=== PATIENT | male | born 1990 | race Caucasian/White ===

== ENCOUNTER 2016-08-26 08:45 | Outpatient (RCR) | payer OTHER ==
[~2016-08-26 08:45] MED LIST: no home medications
== END 2016-08-27 | disposition home or self-care (01) ==
LOC: M OUTALCOH 08:45
PROVIDERS: ATTEND Psychiatry & Neurology Psychiatry
DX: F10.20 Alcohol dependence, uncomplicated (principal); F17.200 Nicotine dependence, unspecified, uncomplicated

== ENCOUNTER 2016-09-23 11:00 | Outpatient (RCR) | payer OTHER | END 2016-09-24 | LOC: M OUTALCOH 11:00 | PROVIDERS: ATTEND Psychiatry & Neurology Psychiatry | DX: F10.20 Alcohol dependence, uncomplicated (principal); F12.20 Cannabis dependence, uncomplicated; F17.200 Nicotine dependence, unspecified, uncomplicated ==

== ENCOUNTER → 2016-12-18 | Outpatient (CLI) | payer MEDICAID | LOC: M OUTALCOH 07:37 | PROVIDERS: ATTEND Psychiatry & Neurology Psychiatry | DX: Z13.9 Encounter for screening, unspecified (principal); F10.20 Alcohol dependence, uncomplicated; F12.20 Cannabis dependence, uncomplicated ==

== ENCOUNTER 2017-01-23 14:00 | Outpatient (RCR) | payer MEDICAID | END 2017-01-24 | LOC: M OUTALCOH 14:00 | PROVIDERS: ATTEND Psychiatry & Neurology Psychiatry | DX: F10.20 Alcohol dependence, uncomplicated (principal); F17.200 Nicotine dependence, unspecified, uncomplicated; F12.20 Cannabis dependence, uncomplicated ==

== ENCOUNTER → 2017-02-24 | Outpatient (RCR) | payer MEDICAID | LOC: M OUTALCOH 01-30 15:52 | PROVIDERS: ATTEND Psychiatry & Neurology Psychiatry | DX: F10.20 Alcohol dependence, uncomplicated (principal); F17.200 Nicotine dependence, unspecified, uncomplicated; F12.20 Cannabis dependence, uncomplicated ==

== ENCOUNTER 2017-03-26 15:00 | Outpatient (RCR) | payer MEDICAID | END 2017-03-27 | LOC: M OUTALCOH 15:00 | PROVIDERS: ATTEND Psychiatry & Neurology Psychiatry | DX: F10.20 Alcohol dependence, uncomplicated (principal); F17.200 Nicotine dependence, unspecified, uncomplicated; F12.20 Cannabis dependence, uncomplicated ==

== ENCOUNTER 2017-04-23 15:00 | Outpatient (RCR) | payer MEDICAID | END 2017-04-26 | LOC: M OUTALCOH 15:00 | PROVIDERS: ATTEND Psychiatry & Neurology Psychiatry | DX: F10.20 Alcohol dependence, uncomplicated (principal); F17.200 Nicotine dependence, unspecified, uncomplicated; F12.20 Cannabis dependence, uncomplicated ==

== ENCOUNTER 2017-06-23 16:00 | Outpatient (RCR) | payer MEDICAID | END 2017-06-26 | LOC: M OUTALCOH 16:00 | PROVIDERS: ATTEND Psychiatry & Neurology Psychiatry | DX: F10.20 Alcohol dependence, uncomplicated (principal); F17.200 Nicotine dependence, unspecified, uncomplicated; F12.20 Cannabis dependence, uncomplicated ==

== ENCOUNTER 2017-06-30 14:55 | Outpatient (RCR) | payer MEDICAID | END 2017-07-27 | LOC: M OUTALCOH 14:55 | DX: F10.20 Alcohol dependence, uncomplicated (principal); F17.200 Nicotine dependence, unspecified, uncomplicated; F12.20 Cannabis dependence, uncomplicated ==

== ENCOUNTER 2017-08-13 15:03 | Outpatient (RCR) | payer MEDICAID | END 2017-08-27 | LOC: M OUTALCOH 08-14 16:00 | DX: F10.20 Alcohol dependence, uncomplicated (principal); F17.200 Nicotine dependence, unspecified, uncomplicated; F12.20 Cannabis dependence, uncomplicated ==

== ENCOUNTER 2017-09-01 10:15 | Outpatient (RCR) | payer MEDICAID | END 2017-09-24 | LOC: M OUTALCOH 09-08 16:00 | DX: F10.20 Alcohol dependence, uncomplicated (principal); F17.200 Nicotine dependence, unspecified, uncomplicated; F12.20 Cannabis dependence, uncomplicated ==

== ENCOUNTER 2017-09-26 14:58 | Outpatient (RCR) | payer MEDICAID | END 2017-10-25 | LOC: M OUTALCOH 09-29 08:45 | DX: F10.20 Alcohol dependence, uncomplicated (principal); F17.200 Nicotine dependence, unspecified, uncomplicated; F12.20 Cannabis dependence, uncomplicated ==

== ENCOUNTER 2017-11-11 15:03 | Outpatient (RCR) | payer MEDICAID | END 2017-11-24 | LOC: M OUTALCOH 15:03 | DX: F10.20 Alcohol dependence, uncomplicated (principal); F17.200 Nicotine dependence, unspecified, uncomplicated; F12.20 Cannabis dependence, uncomplicated ==

== ENCOUNTER 2017-11-25 16:16 | Outpatient (RCR) | payer MEDICAID | END 2017-12-25 | LOC: M OUTALCOH 11-26 16:00 | DX: F10.20 Alcohol dependence, uncomplicated (principal); F17.200 Nicotine dependence, unspecified, uncomplicated; F12.20 Cannabis dependence, uncomplicated ==

== ENCOUNTER 2018-01-07 10:31 | Outpatient (RCR) | payer MEDICAID | END 2018-01-24 | LOC: M OUTALCOH 10:31 | DX: F10.20 Alcohol dependence, uncomplicated (principal); F17.200 Nicotine dependence, unspecified, uncomplicated; F12.20 Cannabis dependence, uncomplicated ==

== ENCOUNTER → 2018-04-17 | Outpatient (REF) | payer MEDICAID ==
[2018-04-20 12:58] LABS: HEPATITIS A ANTIBODY IGM NEGATIVE (NEGATIVE); HEPATITIS B CORE ANTIBODY IGM NEGATIVE (NEGATIVE); HEPATITIS B SURFACE ANTIGEN NEGATIVE (NEGATIVE)
[2018-04-20 12:58] LABS: HEPATITIS C VIRUS ABY INDEX 0.1 INDEX (<0.8)
== END ==
LOC: M LAB REF 17:35
DX: Z02.89 Encounter for other administrative examinations (principal)

== ENCOUNTER 2018-05-22 09:50 | Emergency (ER) | payer OTHER ==
[2018-05-22] MEDS: MORPHINE 2 MG/ML 1ML SYRINGE (J2270) IV ×2 (10:40→12:02)
[2018-05-22] MEDS: ONDANSETRON 4MG/2ML VIAL (J2405) IV (10:40)
== END 2018-05-22 12:21 | disposition home or self-care (01) ==
LOC: M ED 09:50
DX: S42.022A Displaced fracture of shaft of left clavicle, initial encounter for closed fracture (principal); V00.131A Fall from skateboard, initial encounter; Y92.830 Public park as the place of occurrence of the external cause; Z87.81 Personal history of (healed) traumatic fracture; K21.9 Gastro-esophageal reflux disease without esophagitis; F17.200 Nicotine dependence, unspecified, uncomplicated; Z79.899 Other long term (current) drug therapy
CPT/HCPCS: J2405

== ENCOUNTER 2019-02-09 14:26 | Emergency (ER) | payer OTHER ==
[~2019-02-09] VITALS: Ht 188 cm; Wt 84.6 kg
[~2019-02-09 14:26] MED LIST changes: +CLON-412; +DEXT10CA5; +PERC5TAB12 PO
[2019-02-09 14:27] VITALS: BP 140/83
[2019-02-09] MEDS ORDERED: BACT800T5 PO (15:58)
[2019-02-09] MEDS ORDERED: NAPR-837 PO (15:58)
[2019-02-09] MEDS ORDERED: BACTRIM 160MG/800MG DS TAB PO ONE (16:00)
[2019-02-09] MEDS ORDERED: NAPROXEN 250 MG TAB PO ONE (16:00)
[2019-02-09] MEDS ORDERED: DERMABOND TOPICAL SKIN ADHESIVE TOP ONE (16:00)
== END 2019-02-09 16:08 | disposition home or self-care (01) ==
LOC: M ED 14:26
DX: S61.012A Laceration without foreign body of left thumb without damage to nail, initial encounter (principal); W26.0XXA Contact with knife, initial encounter; Y92.098 Other place in other non-institutional residence as the place of occurrence of the external cause; K21.9 Gastro-esophageal reflux disease without esophagitis; R06.83 Snoring; M79.9 Soft tissue disorder, unspecified; Z79.899 Other long term (current) drug therapy; F17.200 Nicotine dependence, unspecified, uncomplicated

== ENCOUNTER 2023-05-19 13:09 | Emergency (ER) | payer OTHER ==
[~2023-05-19] VITALS: Ht 190.5 cm; Wt 87.9 kg
[~2023-05-19 13:09] MED LIST changes: +BACT800T5 PO; +NAPR-837 PO
[2023-05-19 13:10] VITALS: BP 159/94; TEMP 98.6; O2SAT 100
== END 2023-05-19 14:45 | disposition left against medical advice (07) ==
LOC: M ED 13:09
DX: Z53.21 Procedure and treatment not carried out due to patient leaving prior to being seen by health care provider (principal)

== ENCOUNTER 2025-03-29 18:10 | Emergency (ER) | payer OTHER ==
[~2025-03-29] VITALS: Ht 188 cm; Wt 82.9 kg
[2025-03-29 18:43] LABS: PLATELET COUNT, AUTOMATED 292 10^3/uL (150-450)
[2025-03-29 19:15] LABS: SALICYLATE LEVEL < 3.0 MG/DL (<30)
[2025-03-29 19:19] LABS: ALT/SGPT 128 U/L (7.0-40); AST/SGOT 136 U/L (<34); CALCIUM LEVEL 8.7 MG/DL (8.5-10.1); CARBON DIOXIDE LEVEL 20 MMOL/L (20-31); CHLORIDE LEVEL 101 MMOL/L (98-107); CREATININE FOR GFR 0.78 MG/DL (0.70-1.30); GLOMERULAR FILTRATION RATE > 90.0 (>60); POTASSIUM SERUM 4.2 MMOL/L (3.5-5.1); SODIUM LEVEL 141 MMOL/L (136-145)
[2025-03-29] MEDS ORDERED: HALOPERIDOL LACTATE 5 MG/ML VIAL As Ordered ONE (19:25)
[2025-03-29] MEDS: HALOPERIDOL LACTATE 5 MG/ML VIAL IM ONE (19:31)
[2025-03-29 20:38] LABS: ETHYL ALCOHOL (ETHANOL) 0.400 % (0.000-0.010)
[2025-03-29] MEDS: ONDANSETRON 4MG ORAL DISINTEGRATING TAB PO ONE (21:30)
[2025-03-30 05:23] LABS: AMPHETAMINES LEVEL URINE NEGATIVE (NEGATIVE); BARBITURATES URINE NEGATIVE (NEGATIVE); BENZODIAZEPINES URINE NEGATIVE (NEGATIVE); COCAINE METABOLITE URINE NEGATIVE (NEGATIVE); METHADONE URINE NEGATIVE (NEGATIVE); OPIATES URINE NEGATIVE (NEGATIVE); PHENCYCLIDINE URINE NEGATIVE (NEGATIVE)
[2025-03-30 05:29] LABS: CANNABINOIDS URINE POSITIVE (NEGATIVE)
[2025-03-30] MEDS: ONDANSETRON 4MG ORAL DISINTEGRATING TAB PO ONE (07:40)
[2025-03-30] MEDS ORDERED: HOME MED LIST COMPLETE! XX SCH (09:35)
[2025-03-30 09:49] VITALS: BP 159/89; TEMP 97.5; O2SAT 98
== END 2025-03-30 10:02 | disposition home or self-care (01) ==
LOC: EDBD 18:10 → M ED 18:10
DX: F10.120 Alcohol abuse with intoxication, uncomplicated (principal); S62.316A Displaced fracture of base of fifth metacarpal bone, right hand, initial encounter for closed fracture; S62.314A Displaced fracture of base of fourth metacarpal bone, right hand, initial encounter for closed fracture; Y92.9 Unspecified place or not applicable; Y93.9 Activity, unspecified; Y99.9 Unspecified external cause status; K21.9 Gastro-esophageal reflux disease without esophagitis
CPT/HCPCS: 29125; 73130; 80048; 80076; 80143; 80307; 82077; 84443; 85027; 93041; 94760; 96372; 99285; J1630; J2060